=== PATIENT | male | born 1995 | race African-American/Black ===

== ENCOUNTER 2018-09-27 12:49 | Emergency (ER) | payer SELFPAY | END 2018-09-27 14:02 | disposition home or self-care (01) | LOC: ERS 12:49 | DX: M54.2 Cervicalgia (principal) | CPT/HCPCS: 99283 ==

== ENCOUNTER 2025-03-17 13:20 | Emergency (ER) | payer BC, SELFPAY ==
[2025-03-17] MEDS ORDERED: Azithromycin 250 MG TAB ONE (15:18)
[2025-03-17] MEDS ORDERED: cefTRIAXone (ROCEPHIN) 500 MG VIAL ONE (15:19)
[2025-03-17 15:39] LABS: Bacteria/HPF None Seen HPF (None Seen); CAUTI Indications for Culture Acute Hematuria; Glucose, Urine (Dipstick) Normal (Negative); Leukocyte Negative Leu/uL (Negative); Protein, Urine (Dipstick) Negative (Neg-Trace); RBC/HPF 0-3 HPF (0-3); Specific Gravity, Urine 1.018 (1.002-1.036); WBC/HPF 0-3 HPF (0-3)
[2025-03-17 15:41] LABS: Urine Culture Reflex No No
[2025-03-17 23:05] LABS: Chlam.trachomatis by PCR,Urine DETECTED (NotDetected); GC N.gonorrhoeae PCR,UrineVOID Not Detected (NotDetected)
== END 2025-03-17 15:57 | disposition home or self-care (01) ==
LOC: ERS 13:20
DX: Z20.2 Contact with and (suspected) exposure to infections with a predominantly sexual mode of transmission (principal)
CPT/HCPCS: 81001; 87491; 87591; 96372; 99283; J0696